=== PATIENT | male | born 2005 | race African-American/Black ===

== ENCOUNTER 2025-08-23 09:33 | Emergency (ER) | payer OTHER ==
[~2025-08-23] VITALS: Ht 175.3 cm; Wt 60.0 kg
[2025-08-23 09:35] VITALS: BP 166/100; PULSE 82; RESP 16; TEMP 98.4; O2SAT 100
[2025-08-23] MEDS: IBUPROFEN 400MG TABLET PO ONE (09:45)
[2025-08-23] MEDS ORDERED: IBUP-2028 PO (10:53)
== END 2025-08-23 11:09 | disposition home or self-care (01) ==
LOC: ER 09:33
DX: S00.83XA Contusion of other part of head, initial encounter (principal); X58.XXXA Exposure to other specified factors, initial encounter; Y93.89 Activity, other specified; Y92.89 Other specified places as the place of occurrence of the external cause; Y99.8 Other external cause status
CPT/HCPCS: 70486; 99284